=== PATIENT | female | born 1990 | race Caucasian/White ===

== ENCOUNTER 2018-01-07 20:46 | Emergency (ER) | payer OTHER, MEDICAID ==
[~2018-01-07] VITALS: Ht 157.5 cm; Wt 76.7 kg
[2018-01-07 23:24] LABS: UA SPECIFIC GRAVITY >=1.030 (1.005-1.035); microscopic required? YES; urine erythrocyte 3+ (NEGATIVE)
[2018-01-08 01:12] VITALS: BP 118/75
== END 2018-01-08 01:12 | disposition home or self-care (01) ==
LOC: ED 20:46
PROVIDERS: Specialist
DX: O23.41 Unspecified infection of urinary tract in pregnancy, first trimester (principal); G43.909 Migraine, unspecified, not intractable, without status migrainosus; Z3A.01 Less than 8 weeks gestation of pregnancy; Z90.49 Acquired absence of other specified parts of digestive tract

== ENCOUNTER 2018-01-17 07:50 | Emergency (ER) | payer OTHER, MEDICAID ==
[~2018-01-17] VITALS: Ht 157.5 cm; Wt 75.3 kg
[2018-01-17 08:06] VITALS: Ht 157.5 cm; Wt 75.3 kg
[2018-01-17 09:51] LABS: BASOPHIL % 0.3 % (0-2); PLATELET COUNT 284 x10^3mcL (130-400); RED CELL DISTRIBUTION WIDTH 12.5 % (11.5-14.5)
[2018-01-17 10:11] LABS: UA SPECIFIC GRAVITY 1.025 (1.005-1.035); microscopic required? YES; urine erythrocyte 3+ (NEGATIVE)
[2018-01-17 11:48] VITALS: BP 123/68
== END 2018-01-17 11:48 | disposition home or self-care (01) ==
LOC: ED 07:50
PROVIDERS: Emergency Medicine
DX: O20.0 Threatened abortion (principal)
CPT/HCPCS: 36415

== ENCOUNTER 2018-04-03 16:15 | Emergency (ER) | payer MEDICAID ==
[~2018-04-03] VITALS: Ht 157.5 cm; Wt 77.6 kg
[2018-04-03 16:58] VITALS: Ht 157.5 cm; Wt 77.6 kg
[2018-04-03 17:51] LABS: BASOPHIL % 0.2 % (0-2); PLATELET COUNT 258 x10^3mcL (130-400); RED CELL DISTRIBUTION WIDTH 13.2 % (11.5-14.5)
[2018-04-03 18:15] LABS: CALCIUM 8.8 mg/dL (8.5-10.1); CARBON DIOXIDE 23.4 mmol/L (21-32); CHLORIDE SERUM 106 mmol/L (98-107); CREATININE SERUM 0.5 mg/dL (0.6-1.0); GFR1 > 60 mL/min; GLUCOSE SERUM 86 mg/dL (74-106); POTASSIUM SERUM 3.9 mmol/L (3.5-5.1); SODIUM SERUM 140 mmol/L (136-145)
[2018-04-03 18:19] LABS: ALKALINE PHOSPHATASE 64 U/L (46-116); ALT/SGPT 44 U/L (14-59); AST/SGOT 30 U/L (15-37); BILIRUBIN TOTAL 0.12 mg/dL (0.20-1.00); LIPASE 70 IU/L (73-393); TOTAL PROTEIN, SERUM 7.5 g/dL (6.4-8.2)
[2018-04-03 18:26] LABS: ALBUMIN 2.8 g/dL (3.4-5.0)
[2018-04-03 22:02] VITALS: BP 109/67
== END 2018-04-03 22:02 | disposition home or self-care (01) ==
LOC: ED 16:15
PROVIDERS: Emergency Medicine
DX: O99.612 Diseases of the digestive system complicating pregnancy, second trimester (principal); K52.9 Noninfective gastroenteritis and colitis, unspecified; Z3A.18 18 weeks gestation of pregnancy; Z90.49 Acquired absence of other specified parts of digestive tract
CPT/HCPCS: J7030

== ENCOUNTER 2019-03-23 21:29 | Emergency (ER) | payer MEDICAID ==
[~2019-03-23] VITALS: Ht 157.5 cm; Wt 88.9 kg
[2019-03-23 21:41] VITALS: BP 106/70; Ht 157.5 cm; Wt 88.9 kg
== END 2019-03-24 00:28 | disposition left against medical advice (07) ==
LOC: ED 21:29
DX: Z53.21 Procedure and treatment not carried out due to patient leaving prior to being seen by health care provider (principal)